=== PATIENT | female | born 1990 | race Caucasian/White ===

== ENCOUNTER 2019-01-10 15:40 | Emergency (ER) | payer SELFPAY ==
--- NOTE | 2019-01-10 16:13 | ER ---
Nurse's Notes [facility] Name: Tamica Cam Age: 28 yrs Sex: Female : 1990 Arrival Date: 01/10/2019 Time: 15:43 Bed 12 Private MD: Diagnosis: Asthma;Acute bronchitis Presentation: 01/10 16:01 Presenting complaint: Patient states: "Cough started last night. I have asthma, but it aj1 only acts up when I'm sick, so its been flaring up here and there all day" Reports productive cough, fever (TMax 101), and shortness of breath with activity. Transition of care: patient was not received from another setting of care. Onset of symptoms was January 09, 2019 at 18:00. Risk Assessment: Do you want to hurt yourself or someone else? Patient reports no desire to harm self or others. Initial Sepsis Screen: Does the patient meet any 2 criteria? No. Patient's initial sepsis screen is negative. Does the patient have a suspected source of infection? Yes: Productive cough/pneumonia. Care prior to arrival: None. 16:01 Method Of Arrival: Ambulatory aj1 16:01 Acuity: MICHELL 4 aj1 Triage Assessment: 16:04 General: Appears in no apparent distress. uncomfortable, Behavior is calm, cooperative, aj1 appropriate for age. Pain: Complains of pain in back Pain currently is 2 out of 10 on a pain scale. Neuro: Level of Consciousness is awake, alert, obeys commands. Cardiovascular: Patient's skin is warm and dry. Respiratory: Reports shortness of breath on exertion cough that is productive, Airway is patent Respiratory effort is even, unlabored, Respiratory pattern is regular, symmetrical, Onset: The symptoms/episode began/occurred yesterday, the patient has mild shortness of breath. DIRECTOR OF APPLICATION DEVELOPMENT: 16:28 LMP 12/15/2018 rv Historical: - Allergies: 16:04 No Known Allergies; aj1 - Home Meds: 16:04 None [Active]; aj1 - PMHx: 16:04 Asthma; aj1 - PSHx: 16:04 ; aj1 - Immunization history:: Flu vaccine is not up to date. - Social history:: Smoking status: Patient uses tobacco products, smokes one pack cigarettes per day. - Ebola Screening: : Patient denies travel to an Ebola-affected area in the 21 days before illness onset. Screenin:26 Abuse screen: Denies threats or abuse. Denies injuries from another. Nutritional rv screening: No deficits noted. Tuberculosis screening: No symptoms or risk factors identified. Fall Risk None identified. Assessment: 16:25 General: Appears in no apparent distress. comfortable, Behavior is calm, cooperative. rv Pain: Denies pain. Neuro: Level of Consciousness is awake, alert, obeys commands, Oriented to person, place, time, situation. Cardiovascular: Capillary refill < 3 seconds Rhythm is regular. Respiratory: Reports cough that is dry, persistent Airway is patent Respiratory effort is labored, Breath sounds are clear bilaterally. the patient has mild shortness of breath. GI: No signs and/or symptoms were reported involving the gastrointestinal system. : No signs and/or symptoms were reported regarding the genitourinary system. EENT: No signs and/or symptoms were reported regarding the EENT system. Derm: Skin is intact. Musculoskeletal: No signs and/or symptoms reported regarding the musculoskeletal system. Vital Signs: 16:04 BP 128 / 85; Pulse 86; Resp 20; Temp 98.2; Pulse Ox 98% on R/A; Weight 127.01 kg (R); aj1 Height 5 ft. 10 in. (177.80 cm) (R); Pain 2/10; 16:44 BP 110 / 79 LA Sitting; Pulse 91; Resp 19 S; Temp 98(O); Pulse Ox 100% on Nebulizer rv Mask; 16:04 Body Mass Index 40.18 (127.01 kg, 177.80 cm) aj1 ED Course: 15:43 Patient arrived in ED. mr 15:50 Y[facility]anda [facility]C [facility]. snw 15:50 Sean Celestin MD is Attending Physician. snw 16:03 Triage completed. aj1 16:04 Arm band placed on Patient placed in an exam room. aj1 16:07 Rio Hutchison, ANA is Primary Nurse. rv 16:26 Patient has correct armband on for positive identification. Bed in low position. Call rv light in reach. Pulse ox on. NIBP on. 16:45 No provider procedures requiring assistance completed. Patient did not have IV access rv during this emergency room visit. Administered Medications: 16:20 Drug: predniSONE 40 mg Route: PO; rv 16:43 Follow up: Response: No adverse reaction rv 16:20 Drug: Zithromax 500 mg Route: PO; rv 16:44 Follow up: Response: No adverse reaction rv 16:22 Drug: Albuterol 2.5 mg Route: Inhalation; rv 16:43 Follow up: Response: Marked relief of symptoms rv Outcome: 16:13 Discharge ordered by . duane 16:45 Discharged to home ambulatory. rv 16:45 Condition: good 16:45 Discharge instructions given to patient, Instructed on discharge instructions, follow up and referral plans. medication usage, Demonstrated understanding of instructions, follow-up care, medications, Prescriptions given X 4. 16:45 Patient left the ED. rv Signatures: Arely Natarajan RN RN aj1 Yolanda Rodriguez, CLAIMS ADJUSTOR-C CLAIMS ADJUSTOR-Csnw Marilynn Burnett Ronaldo, RN RN rv
--- NOTE | 2019-01-10 16:14 | EDPHYS ---
Physician Documentation [facility] Name: Tamica Cam Age: 28 yrs Sex: Female : 1990 Arrival Date: 01/10/2019 Time: 15:43 Bed 12 Private MD: ED Physician Sean Celestin HPI: 01/10 16:16 This 28 yrs old Female presents to ER via Ambulatory with complaints of snw Cough, Breathing Difficulty. 16:16 The patient or guardian reports airway noise, cough, flu symptoms, low-grade fever, snw myalgias, no appetite, hoarse voice. Onset: The symptoms/episode began/occurred suddenly, this morning. Severity of symptoms: At their worst the symptoms were mild, moderate. Associated signs and symptoms: Pertinent positives: fever, sore throat. The patient has experienced similar episodes in the past. The patient has not recently seen a physician. 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 - Social history:: Smoking status: Patient uses tobacco products, smokes one pack cigarettes per day. - Ebola Screening: : Patient denies travel to an Ebola-affected area in the 21 days before illness onset. ROS: 16:15 Eyes: Negative for injury, pain, redness, and discharge, ENT: Negative for injury, snw pain, and discharge, Neck: Negative for injury, pain, and swelling, Cardiovascular: Negative for chest pain, palpitations, and edema, Abdomen/GI: Negative for abdominal pain, nausea, vomiting, diarrhea, and constipation, Back: Negative for injury and pain, : Negative for injury, bleeding, discharge, and swelling, MS/Extremity: Negative for injury and deformity, Skin: Negative for injury, rash, and discoloration, Neuro: Negative for headache, weakness, numbness, tingling, and seizure. 16:15 Constitutional: Positive for body aches, fever, malaise. 16:15 Respiratory: Positive for cough, wheezing. Exam: 16:14 Constitutional: This is a well developed, well nourished patient who is awake, alert, snw and in no acute distress. Head/Face: Normocephalic, atraumatic. Eyes: Pupils equal round and reactive to light, extra-ocular motions intact. Lids and lashes normal. Conjunctiva and sclera are non-icteric and not injected. Cornea within normal limits. Periorbital areas with no swelling, redness, or edema. Neck: Trachea midline, no thyromegaly or masses palpated, and no cervical lymphadenopathy. Supple, full range of motion without nuchal rigidity, or vertebral point tenderness. No Meningismus. Chest/axilla: Normal chest wall appearance and motion. Nontender with no deformity. No lesions are appreciated. Cardiovascular: Regular rate and rhythm with a normal S1 and S2. No gallops, murmurs, or rubs. Normal PMI, no JVD. No pulse deficits. Abdomen/GI: Soft, non-tender, with normal bowel sounds. No distension or tympany. No guarding or rebound. No evidence of tenderness throughout. Back: No spinal tenderness. No costovertebral tenderness. Full range of motion. Skin: Warm, dry with normal turgor. Normal color with no rashes, no lesions, and no evidence of cellulitis. MS/ Extremity: Pulses equal, no cyanosis. Neurovascular intact. Full, normal range of motion. Neuro: Awake and alert, GCS 15, oriented to person, place, time, and situation. Cranial nerves II-XII grossly intact. Motor strength 5/5 in all extremities. Sensory grossly intact. Cerebellar exam normal. Normal gait. Psych: Awake, alert, with orientation to person, place and time. Behavior, mood, and affect are within normal limits. 16:14 Respiratory: mild respiratory distress is noted, Respirations: accessory muscle usage, shallow respirations, tachypnea, Breath sounds: wheezing: expiratory that is moderate, that is severe, is heard diffusely, tight cough. 16:14 ENT: Ear canal(s): no acute changes, TM's: are normal, Nose: is normal, Mouth: is snw normal, Posterior pharynx: erythema, that is moderate, Voice: is hoarse. Vital Signs: 16:04 BP 128 / 85; Pulse 86; Resp 20; Temp 98.2; Pulse Ox 98% on R/A; Weight 127.01 kg (R); aj1 Height 5 ft. 10 in. (177.80 cm) (R); Pain 2/10; 16:44 BP 110 / 79 LA Sitting; Pulse 91; Resp 19 S; Temp 98(O); Pulse Ox 100% on Nebulizer rv Mask; 16:04 Body Mass Index 40.18 (127.01 kg, 177.80 cm) aj1 MDM: 16:09 Patient medically screened. snw 16:16 Data reviewed: vital signs, nurses notes. Data interpreted: Pulse oximetry: on room air snw is 98 %. Interpretation: normal. Counseling: I had a detailed discussion with the patient and/or guardian regarding: the historical points, exam findings, and any diagnostic results supporting the discharge/admit diagnosis, the presence of at least one elevated blood pressure reading (>120/80) during this emergency department visit, the need for outpatient follow up, to return to the emergency department if symptoms worsen or persist or if there are any questions or concerns that arise at home. Special discussion: I have referred the patient to see his PCP for further evaluation of high blood pressure. Based on the history and exam findings, there is no indication for further emergent testing or inpatient evaluation. I discussed with the patient/guardian the need to see the primary care provider for further evaluation of the symptoms. Administered Medications: 16:20 Drug: predniSONE 40 mg Route: PO; rv 16:43 Follow up: Response: No adverse reaction rv 16:20 Drug: Zithromax 500 mg Route: PO; rv 16:44 Follow up: Response: No adverse reaction rv 16:22 Drug: Albuterol 2.5 mg Route: Inhalation; rv 16:43 Follow up: Response: Marked relief of symptoms rv Disposition: 01/11 07:06 Co-signature as Attending Physician, Sean Celestin MD I agree with the assessment and melanie plan of care. Disposition: 01/10/19 16:13 Discharged to Home. Impression: Asthma, Acute bronchitis. - Condition is Stable. - Discharge Instructions: Acute Bronchitis, Adult, Asthma, Adult, Fever, Adult, Cough, Adult, Rehydration, Adult. - Prescriptions for Prednisone 20 mg Oral Tablet - take 2 tablet by ORAL route once daily for 5 days; 10 tablet. Albuterol Sulfate 90 mcg/actuation - inhale 1-2 puff by INHALATION route every 4-6 hours; 1 Inhaler. Pepcid 20 mg Oral Tablet - take 1 tablet by ORAL route once daily; 20 tablet. Zithromax 500 mg Oral Tablet - take 1 tablet by ORAL route once daily for 5 days; 5 tablet. - Work release form, Medication Reconciliation Form, Thank You Letter, Antibiotic Education, Prescription Opioid Use form. - Follow up: Private Physician; When: 2 - 3 days; Reason: Recheck today's complaints, Continuance of care, Re-evaluation by your physician. Follow up: Emergency Department; When: As needed; Reason: Worsening of condition. Signatures: Arely Natarajan, RN RN ajSean Burnham MD MD cha Therrien, Shelly, GERIATRIC NURSE-C GERIATRIC NURSE-Csnw Rio Hutchison, RN RN rv Corrections: (The following items were deleted from the chart) 01/10 16:45 16:13 01/10/2019 16:13 Discharged to Home. Impression: Asthma; Acute bronchitis. rv Condition is Stable. Forms are Medication Reconciliation Form, Thank You Letter, Antibiotic Education, Prescription Opioid Use. Follow up: Private Physician; When: 2 - 3 days; Reason: Recheck today's complaints, Continuance of care, Re-evaluation by your physician. Follow up: Emergency Department; When: As needed; Reason: Worsening of condition. snw
[2019-01-10] MEDS ORDERED: ALBUTEROL 2.5 MG/3 ML NEB SOL ONE (16:29)
[2019-01-10] MEDS ORDERED: AZITHROMYCIN 250 MG TAB ONE (16:29)
[2019-01-10] MEDS ORDERED: predniSONE 20 MG TAB ONE (16:29)
== END 2019-01-10 16:45 | disposition home or self-care (01) ==
LOC: ER 15:40
DX: J20.9 Acute bronchitis, unspecified (principal); J45.909 Unspecified asthma, uncomplicated; F17.210 Nicotine dependence, cigarettes, uncomplicated
CPT/HCPCS: 99284; J7512

== ENCOUNTER 2020-03-15 14:07 | Emergency (ER) | payer SELFPAY ==
--- NOTE | 2020-03-15 15:11 | ER ---
Nurse's Notes [facility] Name: Tamica Cam Age: 29 yrs Sex: Female : 1990 Arrival Date: 03/15/2020 Time: 14:13 Bed 12 Private MD: Diagnosis: Noninfective disorders of pinna, right ear-earlobe Presentation: 03/15 14:23 Coronavirus screen: Patient denies a cough. Patient denies shortness of breath or ll1 difficulty breathing. Patient denies measured and/or subjective temperature greater than 100.4F prior to today's visit. Patient denies travel on a cruise ship or to a country the [facility] currently lists as an affected area. Patient denies contact with known and/or suspected case of COVID-19. Proceed with normal triage. Ebola Screen: Patient denies travel to an Ebola-affected area in the 21 days before illness onset. Initial Sepsis Screen: Does the patient meet any 2 criteria? No. Patient's initial sepsis screen is negative. Risk Assessment: Do you want to hurt yourself or someone else? Patient reports no desire to harm self or others. Onset of symptoms was March 14, 2020. 14:23 Method Of Arrival: Ambulatory ll1 14:23 Acuity: MICHELL 4 ll1 14:30 Chief complaint: Patient states: redness, swelling and pain to bilateral ear lobes. Pt ss recently stretched her earlobes with silicone gauges. Initial Sepsis Screen: Does the patient have a suspected source of infection? Yes: Skin breakdown/wound. Historical: - Allergies: 14:24 No Known Allergies; ll1 - PMHx: 14:24 Asthma; ll1 - PSHx: 14:24 ; ll1 - Immunization history:: Last tetanus immunization: up to date. - Social history:: Smoking status: Patient reports the use of cigarette tobacco products, smokes one pack cigarettes per day. Patient/guardian denies using alcohol, street drugs. Screenin:50 Abuse screen: Denies threats or abuse. Denies injuries from another. Nutritional ss screening: No deficits noted. Tuberculosis screening: Never had TB. Fall Risk None identified. Assessment: 14:50 General: Appears in no apparent distress. comfortable, Behavior is calm, cooperative. ss Pain: Complains of pain in bilateral ear lobes. Pain currently is 8 out of 10 on a pain scale. Quality of pain is described as burning, tender. Neuro: Level of Consciousness is awake, alert, obeys commands, Oriented to person, place, time, situation. Cardiovascular: Capillary refill < 3 seconds is brisk in bilateral. Respiratory: Airway is patent Respiratory effort is even, unlabored, Respiratory pattern is regular, symmetrical. GI: Patient currently denies diarrhea, nausea, vomiting. : No signs and/or symptoms were reported regarding the genitourinary system. EENT: Nares are clear. Derm: Skin is intact, is healthy with good turgor, Skin is dry, Skin is pink, warm \T\ dry. normal. Vital Signs: 14:23 BP 140 / 86; Pulse 72; Resp 18; Temp 98.5; Pulse Ox 98% ; Pain 8/10; ll1 ED Course: 14:13 Patient arrived in ED. mr 14:22 Yolanda Youngblood FNP-C is [facility]. snw 14:22 Felix Burton MD is Attending Physician. snw 14:24 Triage completed. ll1 14:24 Arm band placed on. ll1 14:49 Alda Galdamez, ANA is Primary Nurse. ss 14:50 Patient has correct armband on for positive identification. Bed in low position. Call ss light in reach. 15:30 No provider procedures requiring assistance completed. Patient did not have IV access ss during this emergency room visit. Administered Medications: 15:15 CANCELLED (Up to date): Tetanus-Diphtheria Toxoid Adult 0.5 ml IM once snw 15:15 Drug: Decadron 8 mg Route: PO; ss 15:16 Drug: Winifrede 5 mg-325 mg 1 tabs Route: PO; ss 15:24 Drug: Rocephin (cefTRIAXone) 1 grams Route: IM; Site: left gluteus; ss Outcome: 15:10 Discharge ordered by . snw 15:30 Condition: good ss 15:30 Discharge instructions given to patient, Instructed on discharge instructions, follow up and referral plans. medication usage, Demonstrated understanding of instructions, follow-up care, medications, Prescriptions given X 2. 15:41 Discharged to home ambulatory. ss 15:42 Patient left the ED. ss Signatures: Yolanda Youngblood FNP-C SHELLFISH FARMING SUPERVISOR-Csnw BurnettMarilynn mr Alda Galdamez, RN RN Karin Casillassay, RN RN ll1
--- NOTE | 2020-03-15 15:11 | EDPHYS ---
Physician Documentation [facility] Name: Tamica Cam Age: 29 yrs Sex: Female : 1990 Arrival Date: 03/15/2020 Time: 14:13 Bed 12 Private MD: ED Physician Felix Burton HPI: 03/15 16:14 This 29 yrs old Female presents to ER via Ambulatory with complaints of snw Infected ear. 16:14 Onset: The symptoms/episode began/occurred suddenly. Associated signs and symptoms: snw Pertinent positives: significant swelling. Modifying factors: The patient symptoms are alleviated by nothing, the patient symptoms are aggravated by touching ear. The patient has not experienced similar symptoms in the past. It is unknown whether or not the patient has recently seen a physician. Historical: - Allergies: 14:24 No Known Allergies; ll1 - PMHx: 14:24 Asthma; ll1 - PSHx: 14:24 ; ll1 - Immunization history:: Last tetanus immunization: up to date. - Social history:: Smoking status: Patient reports the use of cigarette tobacco products, smokes one pack cigarettes per day. Patient/guardian denies using alcohol, street drugs. ROS: 16:14 Constitutional: Negative for fever, chills, and weight loss, Eyes: Negative for injury, snw pain, redness, and discharge, Neck: Negative for injury, pain, and swelling, Cardiovascular: Negative for chest pain, palpitations, and edema, Respiratory: Negative for shortness of breath, cough, wheezing, and pleuritic chest pain, Abdomen/GI: Negative for abdominal pain, nausea, vomiting, diarrhea, and constipation, Back: Negative for injury and pain, : Negative for injury, bleeding, discharge, and swelling, MS/Extremity: Negative for injury and deformity, Skin: Negative for injury, rash, and discoloration, Neuro: Negative for headache, weakness, numbness, tingling, and seizure, Psych: Negative for depression, anxiety, suicide ideation, homicidal ideation, and hallucinations. 16:14 ENT: Positive for ear pain. Exam: 16:14 Constitutional: This is a well developed, well nourished patient who is awake, alert, snw and in no acute distress. Head/Face: Normocephalic, atraumatic. Eyes: Pupils equal round and reactive to light, extra-ocular motions intact. Lids and lashes normal. Conjunctiva and sclera are non-icteric and not injected. Cornea within normal limits. Periorbital areas with no swelling, redness, or edema. Neck: Trachea midline, no thyromegaly or masses palpated, and no cervical lymphadenopathy. Supple, full range of motion without nuchal rigidity, or vertebral point tenderness. No Meningismus. Chest/axilla: Normal chest wall appearance and motion. Nontender with no deformity. No lesions are appreciated. Cardiovascular: Regular rate and rhythm with a normal S1 and S2. No gallops, murmurs, or rubs. Normal PMI, no JVD. No pulse deficits. Respiratory: Lungs have equal breath sounds bilaterally, clear to auscultation and percussion. No rales, rhonchi or wheezes noted. No increased work of breathing, no retractions or nasal flaring. Abdomen/GI: Soft, non-tender, with normal bowel sounds. No distension or tympany. No guarding or rebound. No evidence of tenderness throughout. Back: No spinal tenderness. No costovertebral tenderness. Full range of motion. Skin: Warm, dry with normal turgor. Normal color with no rashes, no lesions, and no evidence of cellulitis. MS/ Extremity: Pulses equal, no cyanosis. Neurovascular intact. Full, normal range of motion. Neuro: Awake and alert, GCS 15, oriented to person, place, time, and situation. Cranial nerves II-XII grossly intact. Motor strength 5/5 in all extremities. Sensory grossly intact. Cerebellar exam normal. Normal gait. Psych: Awake, alert, with orientation to person, place and time. Behavior, mood, and affect are within normal limits. 16:14 ENT: External ear(s): swelling, that is severe, of the pinna of right ear and right ear lobe, s/p gauge piercing, pt declines removal, Nose: is normal, Mouth: is normal. Vital Signs: 14:23 BP 140 / 86; Pulse 72; Resp 18; Temp 98.5; Pulse Ox 98% ; Pain 8/10; ll1 MDM: 14:59 Patient medically screened. snw 15:13 Data reviewed: vital signs, nurses notes. Data interpreted: Pulse oximetry: on room air snw is 98 %. Interpretation: normal. Counseling: I had a detailed discussion with the patient and/or guardian regarding: the historical points, exam findings, and any diagnostic results supporting the discharge/admit diagnosis, the presence of at least one elevated blood pressure reading (>120/80) during this emergency department visit, the need for outpatient follow up, to return to the emergency department if symptoms worsen or persist or if there are any questions or concerns that arise at home. ED course: Pt declines taking gauge out. Administered Medications: 15:15 CANCELLED (Up to date): Tetanus-Diphtheria Toxoid Adult 0.5 ml IM once snw 15:15 Drug: Decadron 8 mg Route: PO; ss 15:16 Drug: Eloy 5 mg-325 mg 1 tabs Route: PO; ss 15:24 Drug: Rocephin (cefTRIAXone) 1 grams Route: IM; Site: left gluteus; ss Disposition: 19:08 Co-signature as Attending Physician, Felix Burton MD I agree with the assessment and kdr plan of care. Disposition: 03/15/20 15:10 Discharged to Home. Impression: Noninfective disorders of pinna, right ear - earlobe. - Condition is Stable. - Discharge Instructions: MRSA Infection, Adult, Cryotherapy. - Prescriptions for Mobic 7.5 mg Oral Tablet - take 1 tablet by ORAL route every 12 hours take with food; 20 tablet. Doxycycline Hyclate 100 mg Oral Tablet - take 1 tablet by ORAL route every 12 hours; 20 tablet. - Medication Reconciliation Form, Thank You Letter, Antibiotic Education, Prescription Opioid Use, Work release form form. - Follow up: Emergency Department; When: As needed; Reason: Worsening of condition. Follow up: Private Physician; When: 2 - 3 days; Reason: Recheck today's complaints, Continuance of care, Re-evaluation by your physician. Signatures: Felix Burton MD MD kdr Waters, Shelly, FNP-C OUTSOLE SPLICER-Yogeshw Alda Galdamez RN RN ss Nurys Eller RN RN ll1 Corrections: (The following items were deleted from the chart) 15:15 15:08 Tetanus-Diphtheria Toxoid Adult 0.5 ml IM once ordered. snw snw 15:15 15:15 Tetanus-Diphtheria Toxoid Adult 0.5 ml IM once ordered. snw snw 15:42 15:10 03/15/2020 15:10 Discharged to Home. Impression: Noninfective disorders of pinna, ss right ear - earlobe. Condition is Stable. Forms are Medication Reconciliation Form, Thank You Letter, Antibiotic Education, Prescription Opioid Use. Follow up: Emergency Department; When: As needed; Reason: Worsening of condition. Follow up: Private Physician; When: 2 - 3 days; Reason: Recheck today's complaints, Continuance of care, Re-evaluation by your physician. duane
[2020-03-15] MEDS ORDERED: TETANUS & DIPHTHERIA TOX,ADULT 0.5 ML VIAL ONE (15:20)
[2020-03-15] MEDS ORDERED: LIDOCAINE 1% MPF 2 ML AMPULE ONE (15:20)
[2020-03-15] MEDS ORDERED: dexAMETHasone 4 MG TAB ONE (15:20)
[2020-03-15] MEDS ORDERED: CEFTRIAXONE 1000 MG/VIAL ONE (15:20)
[2020-03-15] MEDS ORDERED: HYDROCODONE/APAP 5/325 MG TAB ONE (15:21)
[2020-03-15 15:47] VITALS: BP 140/86; TEMP 98.5; O2SAT 98
== END 2020-03-15 15:42 | disposition home or self-care (01) ==
LOC: ER 14:07
DX: H61.191 Noninfective disorders of pinna, right ear (principal); F17.210 Nicotine dependence, cigarettes, uncomplicated
CPT/HCPCS: 90714; 96372; 99283; J2001; J8540

== ENCOUNTER 2020-09-19 08:53 | Emergency (ER) | payer SELFPAY ==
--- NOTE | 2020-09-19 09:28 | EDPHYS ---
Physician Documentation [facility] Name: Tamica Cam Age: 29 yrs Sex: Female : 1990 Arrival Date: 09/19/2020 Time: 08:55 Bed 23 Private MD: ED Physician Felice Cid HPI: 09/19 09:54 This 29 yrs old Female presents to ER via Ambulatory with complaints of Eye jr8 Infection. 09:54 Patient stated that she has had multiple skin infections around right eye in past. jr8 Started to have another one a few days ago that is not getting better. Started putting bactroban on it from last time she had it a couple of years ago. Severity of symptoms: At their worst the symptoms were mild in the emergency department the symptoms are unchanged. The patient has experienced similar episodes in the past, multiple times. The patient has not recently seen a physician. Historical: - Allergies: 09:10 No Known Allergies; ss - Home Meds: 09:10 None [Active]; ss - PMHx: 09:10 Asthma; ss - PSHx: 09:10 ; ss - Immunization history:: Adult Immunizations up to date. - Social history:: Smoking status: Patient reports the use of cigarette tobacco products, smokes one pack cigarettes per day. ROS: 09:54 ENT: Negative for injury, pain, and discharge, Neck: Negative for injury, pain, and jr8 swelling, Cardiovascular: Negative for chest pain, palpitations, and edema, Respiratory: Negative for shortness of breath, cough, wheezing, and pleuritic chest pain, Abdomen/GI: Negative for abdominal pain, nausea, vomiting, diarrhea, and constipation, Back: Negative for injury and pain, MS/Extremity: Negative for injury and deformity, Neuro: Negative for headache, weakness, numbness, tingling, and seizure. 09:54 Eyes: Positive for itching, redness, swelling, of the right upper eyelid, inner aspect of conjuctiva of right eye, right inner canthus and right lower eyelid. Exam: 09:54 Constitutional: This is a well developed, well nourished patient who is awake, alert, jr8 and in no acute distress. Head/Face: Normocephalic, atraumatic. ENT: Nares patent. No nasal discharge, no septal abnormalities noted. Tympanic membranes are normal and external auditory canals are clear. Oropharynx with no redness, swelling, or masses, exudates, or evidence of obstruction, uvula midline. Mucous membranes moist. Cardiovascular: Regular rate and rhythm with a normal S1 and S2. No gallops, murmurs, or rubs. Normal PMI, no JVD. No pulse deficits. Respiratory: Lungs have equal breath sounds bilaterally, clear to auscultation and percussion. No rales, rhonchi or wheezes noted. No increased work of breathing, no retractions or nasal flaring. Skin: Warm, dry with normal turgor. Normal color with no rashes, no lesions, and no evidence of cellulitis. MS/ Extremity: Pulses equal, no cyanosis. Neurovascular intact. Full, normal range of motion. Neuro: Awake and alert, GCS 15, oriented to person, place, time, and situation. Cranial nerves II-XII grossly intact. Motor strength 5/5 in all extremities. Sensory grossly intact. Cerebellar exam normal. Normal gait. 09:54 Eyes: Periorbital structures: Patient has mild swelling and redness with some vesicles noted to upper right eyelid and right inner canthal region, Pupils: equal, round, and reactive to light and accomodation, Extraocular movements: intact throughout, Conjunctiva: injected, in the right eye, Corneas: are normal, Sclera: no appreciated abnormality, Anterior chamber: normal, Examination of the other eye reveals no obvious gross abnormality. Vital Signs: 09:09 Weight 145.15 kg; Height 5 ft. 10 in. (177.80 cm); ss 09:12 BP 146 / 93; Pulse 62; Resp 16; Temp 97.6(TE); Pulse Ox 98% ; ss 09:09 Body Mass Index 45.91 (145.15 kg, 177.80 cm) ss MDM: 09:19 Patient medically screened. jr8 09:54 Data reviewed: vital signs, nurses notes. Data interpreted: Pulse oximetry: on room air jr8 is 98 %. Interpretation: normal. Counseling: I had a detailed discussion with the patient and/or guardian regarding: the historical points, exam findings, and any diagnostic results supporting the discharge/admit diagnosis, the need for outpatient follow up, a family practitioner, to return to the emergency department if symptoms worsen or persist or if there are any questions or concerns that arise at home. Administered Medications: No medications were administered Disposition: 15:23 Co-signature as Attending Physician, Felice Cid MD I agree with the assessment and tw4 plan of care. Disposition: 09/19/20 09:27 Discharged to Home. Impression: Impetigo - right periocular region. - Condition is Stable. - Prescriptions for Bactroban 2 % Topical Ointment - Apply to affected area 1 application by TOPICAL route every 12 hours; 30 gram. Gentamicin 0.3 % Ophthalmic Drops - instill 2 drop by OPHTHALMIC route every 4 hours for 7 days; 1 bottle. Keflex 500 mg Oral Capsule - take 1 capsule by ORAL route every 8 hours for 7 days; 21 capsule. - Work release form, Medication Reconciliation Form, Thank You Letter, Antibiotic Education, Prescription Opioid Use form. - Follow up: Private Physician; When: 5 - 6 days; Reason: Recheck today's complaints, Continuance of care, Re-evaluation by your physician. - Problem is new. - Symptoms have improved. Signatures: Alda Galdamez RN RN ss Abdirizak Paiz PA PA jr8 Felice Cid MD MD tw4 Corrections: (The following items were deleted from the chart) 09:36 09:27 09/19/2020 09:27 Discharged to Home. Impression: Impetigo - right periocular ss region. Condition is Stable. Forms are Medication Reconciliation Form, Thank You Letter, Antibiotic Education, Prescription Opioid Use. Follow up: Private Physician; When: 5 - 6 days; Reason: Recheck today's complaints, Continuance of care, Re-evaluation by your physician. Problem is new. Symptoms have improved. jr8
--- NOTE | 2020-09-19 09:28 | ER ---
Nurse's Notes [facility] Name: Tamica Cam Age: 29 yrs Sex: Female : 1990 Arrival Date: 09/19/2020 Time: 08:55 Bed 23 Private MD: Diagnosis: Impetigo-right periocular region Presentation: 09/19 09:09 Chief complaint: Patient states: "I have impetigo on my eyelid." Started two days ago. ss Coronavirus screen: Client denies travel out of the [place] in the last 14 days. Ebola Screen: Patient denies exposure to infectious person. Patient denies travel to an Ebola-affected area in the 21 days before illness onset. Initial Sepsis Screen: Does the patient meet any 2 criteria? No. Patient's initial sepsis screen is negative. Does the patient have a suspected source of infection? No. Patient's initial sepsis screen is negative. Risk Assessment: Do you want to hurt yourself or someone else? Patient reports no desire to harm self or others. Onset of symptoms was September 17, 2020. 09:09 Method Of Arrival: Ambulatory ss 09:09 Acuity: MICHELL 5 ss Historical: - Allergies: 09:10 No Known Allergies; ss - Home Meds: 09:10 None [Active]; ss - PMHx: 09:10 Asthma; ss - PSHx: 09:10 ; ss - Immunization history:: Adult Immunizations up to date. - Social history:: Smoking status: Patient reports the use of cigarette tobacco products, smokes one pack cigarettes per day. Screenin:15 Abuse screen: Denies threats or abuse. Denies injuries from another. Nutritional ss screening: No deficits noted. Tuberculosis screening: Never had TB. Fall Risk None identified. Assessment: 09:15 General: Appears in no apparent distress. comfortable, Behavior is calm, cooperative. ss Pain: Denies pain. Neuro: Level of Consciousness is awake, alert, obeys commands, Oriented to person, place, time, situation. Cardiovascular: Capillary refill < 3 seconds is brisk in bilateral fingers. Respiratory: Airway is patent Respiratory effort is even, unlabored, Respiratory pattern is regular, symmetrical. GI: No signs and/or symptoms were reported involving the gastrointestinal system. EENT: Nares are clear. Derm: Skin is intact, is healthy with good turgor, Skin is dry. Derm: small scab-like are on R upper eye lid pt reports began two days ago. Pt believes it is impetigo as she has had it multiple times . Musculoskeletal: Circulation, motion, and sensation intact. Range of motion: intact in all extremities, Swelling absent. Vital Signs: 09:09 Weight 145.15 kg; Height 5 ft. 10 in. (177.80 cm); ss 09:12 BP 146 / 93; Pulse 62; Resp 16; Temp 97.6(TE); Pulse Ox 98% ; ss 09:09 Body Mass Index 45.91 (145.15 kg, 177.80 cm) ED Course: 08:55 Patient arrived in ED. mr 09:10 Triage completed. ss 09:10 Arm band placed on left wrist. ss 09:15 Patient has correct armband on for positive identification. Bed in low position. Call ss light in reach. 09:18 Abdirizak [facility] jr8 09:18 Felice Cid MD is Attending Physician. jr8 09:36 Alda Galdamez, ANA is Primary Nurse. ss 09:36 No provider procedures requiring assistance completed. Patient did not have IV access ss during this emergency room visit. Administered Medications: No medications were administered Outcome: 09:27 Discharge ordered by . jr8 09:36 Discharged to home ambulatory. ss 09:36 Condition: good 09:36 Discharge instructions given to patient, Instructed on discharge instructions, follow up and referral plans. medication usage, Demonstrated understanding of instructions, follow-up care, medications. 09:36 Patient left the ED. Signatures: Marilynn Burnett mr Alda Galdamez, ANA RN Abdirizak Paiz PA PA jr8
[2020-09-19 09:41] VITALS: BP 146/93; TEMP 97.6; O2SAT 98
== END 2020-09-19 09:36 | disposition home or self-care (01) ==
LOC: ER 08:53
DX: L01.00 Impetigo, unspecified (principal); F17.210 Nicotine dependence, cigarettes, uncomplicated
CPT/HCPCS: 99281